=== PATIENT | female | born 1955 | race Caucasian/White ===

== ENCOUNTER 2022-06-28 05:35 | Day surgery (SDC) | payer OTHER ==
[2022-06-28] MEDS ORDERED: CILOXAN5 ML OTIC (10:27)
[2022-06-28] MEDS ORDERED: CEPHALEXIN500 MG PO (10:28)
== END 2022-06-28 14:40 | disposition home or self-care (01) ==
LOC: CIR.AMB 05:35 → EDBD 07:15 → CIR.AMB 07:15
PROVIDERS: ATTEND Otolaryngology Otology & Neurotology
DX: H90.11 Conductive hearing loss, unilateral, right ear, with unrestricted hearing on the contralateral side (principal); H74.21 Discontinuity and dislocation of right ear ossicles; H72.11 Attic perforation of tympanic membrane, right ear; I10 Essential (primary) hypertension; E11.319 Type 2 diabetes mellitus with unspecified diabetic retinopathy without macular edema; Z79.4 Long term (current) use of insulin; E03.9 Hypothyroidism, unspecified

== ENCOUNTER 2025-02-25 12:08 | Inpatient (IN) | payer OTHER ==
[~2025-02-25] VITALS: Ht 154.9 cm; Wt 45.4 kg
[~2025-02-25 12:08] MED LIST: CEPHALEXIN500 MG PO; CILOXAN5 ML OTIC
[2025-02-25 15:21] VITALS: BP 148/71
[2025-03-03] MEDS ORDERED: DEXAMETHASONE SODIUM PHOSPHATE 4 MG/ML VIAL ONE (10:04)
[2025-03-03] MEDS ORDERED: CEFAZOLIN SODIUM 1,000 MG VIAL ONE (10:07)
[2025-03-03] MEDS ORDERED: SODIUM CHLORIDE 0.45 % 1,000 ML IV SCH (19:45)
[2025-03-03] MEDS ORDERED: ONDANSETRON HCL 2 MG/ML VIAL IV PRN (19:45)
[2025-03-03] MEDS ORDERED: Calcium Carbonate 1 TAB TABLET PO SCH (21:00)
[2025-03-03] MEDS ORDERED: PANTOPRAZOLE SODIUM 40 MG/VIAL VIAL IV PUSH SCH (21:00)
[2025-03-04] MEDS ORDERED: ACETAMINOPHEN 500 MG GEL..CAP PO SCH (01:00)
[2025-03-04] MEDS ORDERED: TRAMADOL HCL 50 MG TABLET PO SCH (01:00)
[2025-03-04 08:18] VITALS: BP 120/60; O2SAT 98
[2025-03-04] MEDS ORDERED: DIPHENHYDRAMINE HCL 75 MG,LIDOCAINE HCL 30 ML,MAG HYDROX/ALUMINUM HYD/SIMETH 30 ML PO SCH (09:00)
[2025-03-04] MEDS ORDERED: CYCLOBENZAPRINE HCL 5 MG TABLET PO SCH (17:00)
== END 2025-03-04 15:12 | disposition home or self-care (01) | DRG 627 ==
LOC: O/R 03-03 09:00 → SURG 03-03 09:45
PROVIDERS: ADMIT Surgery; ATTEND Surgery
PROC: 0GBL0ZZ Excision of Right Superior Parathyroid Gland, Open Approach (ICD-10-PCS; principal; 2025-03-03 09:45)
DX: D35.1 Benign neoplasm of parathyroid gland (principal); E21.0 Primary hyperparathyroidism